=== PATIENT | female | born 1980 ===

== ENCOUNTER 2019-09-24 12:47 | Emergency (ER) | payer SELFPAY ==
--- NOTE | 2019-09-24 12:58 | Event Note ---
ED Screening Note ED Screening Note: glass in right eye 1 hour ago no vision changes states she was cleaning and a lamp broke she did not wash her eye out This initial assessment/diagnostic orders/clinical plan/treatment(s) is/are subject to change based on patients health status, clinical progression and re- assessment by fellow clinical providers in the ED. Further treatment and workup at subsequent clinical providers discretion. Patient/guardian urged not to elope from the ED as their condition may be serious if not clinically assessed and managed. Initial orders include: ACC eval
[2019-09-24 12:59] VITALS: BP 122/73
[2019-09-24] MEDS ORDERED: FLUORESCEIN 1 MG STRIP OP ONE (13:46)
[2019-09-24] MEDS ORDERED: BALANCED SALT IRRIG (BSS) OPHTH SOLN 15 ML OU ONE (14:16)
--- NOTE | 2019-09-24 14:23 | Emergency Department Report ---
Eye Injury/Foreign Body - HPI Duration: Today Eye Location: Right Tetanus Status: Up to Date Eye Symptoms: Eye Pain: No, Blurred Vision: No, Eye Redness: No, Recalls Injury: Yes Other History: 39-year-old female presents to the emergency room stating she was cleaning a glass lamp and the labs shattered and possible glass in right eye. Patient denies any redness or irritation noted. Patient did not flush I at the time. Patient denies any pain. Patient has no past medical history currently takes no medications on a daily basis and has no known drug allergies. ED Review of Systems ROS: Stated complaint: GLASS IN EYE Other details as noted in HPI Comment: All other systems reviewed and negative ED Past Medical Hx - Past Medical History Previous Medical History?: Yes - Surgical History Past Surgical History?: Yes Additional Surgical History: x 2 - Social History Smoking Status: Never Smoker Substance Use Type: None Eye Injury Exam - Exam General: Vital signs noted. No distress. Alert and acting appropriately. - Visual Acuity Right Eye Exam: Neither Injection, Neither Chemosis, Neither Abnormal Pupil, Neither EOMI, Neither Eye Foreign Body, Neither Lid Foreign Body, Neither Mucous Discharge, Neither Purulent Discharge, Neither Fluorescein Uptake, Neither Fluorescein Uptake (slit lamp), Neither Cell/Flare (slit lamp), Neither Corneal Edema, Neither Photophobia Exam: Floor seen exam of right eye is negative for any corneal abrasion or foreign object no swelling, no conjunctiva irritation or injection. ED Course Vital Signs 09/24/19 12:58 Temperature 98.3 F Pulse Rate 74 Respiratory 18 Rate Blood Pressure 122/73 O2 Sat by Pulse 100 Oximetry ED Medical Decision Making - Medical Decision Making 39-year-old female presents to the emergency room stating she was cleaning a glass lamp and the labs shattered and possible glass in right eye. Patient denies any redness or irritation noted. Patient did not flush I at the time. Patient denies any pain. Patient has no past medical history currently takes no medications on a daily basis and has no known drug allergies. Negative right eye fluorescein exam. Discussed the patient continued flushing her eye. Follow-up with an clerk of scales if she has any further concerns. Critical care attestation.: If time is entered above; I have spent that time in minutes in the direct care of this critically ill patient, excluding procedure time. ED Disposition Clinical Impression: Irritation of right eye Disposition: DC-01 TO HOME OR SELFCARE Is pt being admited?: No Does the pt Need Aspirin: No Condition: Stable Referrals: DANIEL ARROYO MD [Staff Physician] - 3-5 Days Forms: Work/School Release Form(ED), Accompanied Note
== END 2019-09-24 14:23 | disposition home or self-care (01) ==
LOC: ED 12:47
DX: H57.89 Other specified disorders of eye and adnexa (principal); H57.11 Ocular pain, right eye

== ENCOUNTER 2020-01-22 18:45 | Emergency (ER) | payer SELFPAY ==
[2020-01-22 19:19] VITALS: BP 137/71
--- NOTE | 2020-01-22 20:42 | XRay Report ---
CHEST 2 VIEWS INDICATION / CLINICAL INFORMATION: C/O headache, rapid/irregular heart rate, and elevated BP since this morning. . COMPARISON: None available. FINDINGS: SUPPORT DEVICES: None. HEART / MEDIASTINUM: The heart size and pulmonary vasculature are normal. The aorta is normal in loyd cesilia. LUNGS / PLEURA: No significant pulmonary or pleural abnormality. No pneumothorax. ADDITIONAL FINDINGS: No significant additional findings. IMPRESSION: No acute findings. Signer Name: Fercho Wild MD Signed: 01/22/2020 8:37 PM Workstation Name: [id number]
[2020-01-22] MEDS ORDERED: ACETAMINOPHEN 325 MG TAB PO ONE (22:39)
--- NOTE | 2020-01-22 22:39 | Emergency Department Report ---
HPI - General Chief Complaint: Arrhythmia/Palpitations Time Seen by Provider: 01/22/20 22:08 - HPI HPI: This is a 39-year-old female who presents to the emergency department with a complaint of palpitations and a headache. The patient says that the symptoms started this morning. The palpitations have since resolved. The patient described the headache more as pressure to the top of her head and says that has also resolved but the patient complains of a mild to moderate headache, currently 5 out of 10 in intensity. She denies any vision change, slurred speech, numbness or paresthesias, or any other neurological deficits. Denies any past medical history. Took a dose of aspirin for her symptoms. The patient was also concerned of elevated blood pressure as she took her BP on a machine at a pharmacy and says it was 130/70, which is high for her. This patient does not speak much Pashto so our java security architect екатерина was used for translation. ED Past Medical Hx - Surgical History Additional Surgical History: x 2 - Social History Smoking Status: Never Smoker Substance Use Type: None ED Review of Systems ROS: Stated complaint: HEADACHE, FAST HEART BEAT Other details as noted in HPI Comment: All other systems reviewed and negative Constitutional: denies: chills, fever Eyes: denies: eye pain, vision change ENT: denies: ear pain, throat pain Respiratory: denies: cough, shortness of breath Cardiovascular: palpitations. denies: chest pain Gastrointestinal: denies: abdominal pain, vomiting Genitourinary: denies: dysuria, discharge Musculoskeletal: denies: back pain, arthralgia Skin: denies: rash, lesions Neurological: headache. denies: weakness, numbness, paresthesias Physical Exam - Physical Exam Vital Signs: Vital Signs 01/22/20 01/22/20 19:15 19:30 Temperature 98.1 F 98.7 F Pulse Rate 86 82 Respiratory 18 18 Rate Blood Pressure 137/71 137/71 O2 Sat by Pulse 100 100 Oximetry Physical Exam: GENERAL: The patient is well-developed well-nourished. HENT: Normocephalic. Atraumatic. Patient has moist mucous membranes. EYES: Extraocular motions are intact. NECK: Supple. Trachea is midline. CHEST/LUNGS: Clear to auscultation. There is no respiratory distress noted. HEART/CARDIOVASCULAR: Regular. There is no tachycardia. ABDOMEN: Abdomen is soft, nontender. Patient has normal bowel sounds. SKIN: Skin is warm and dry. NEURO: The patient is awake, alert, and oriented. The patient is cooperative. The patient has no focal neurologic deficits. Normal speech. Cranial nerves II through XII grossly intact. No pronator drift. No dysmetria. MUSCULOSKELETAL: There is no tenderness or deformity. There is no limitation range of motion. There is no evidence of acute injury. ED Course Vital Signs 01/22/20 01/22/20 19:15 19:30 Temperature 98.1 F 98.7 F Pulse Rate 86 82 Respiratory 18 18 Rate Blood Pressure 137/71 137/71 O2 Sat by Pulse 100 100 Oximetry ED Medical Decision Making - EKG Data -: EKG Interpreted by Me EKG shows normal: sinus rhythm, axis, intervals, QRS complexes, ST-T waves Rate: normal - EKG Data When compared to previous EKG there are: previous EKG unavailable Interpretation: normal EKG - Radiology Data Radiology results: image reviewed interpreted by me: Chest x-ray does not show any acute process. There are no pleural effusions, obvious pneumonia and there is no pneumothorax. - Medical Decision Making This patient presents with the complaints of palpitations and a headache/head pressure. The palpitations have resolved upon presentation to the emergency [facility]. The patient complains of a mild to moderate headache at this time. She does not have any focal, motor or sensory deficits and her cranial nerves are intact. Given these factors, I did not feel that the patient required CT imaging of the head at this time. An EKG was done that did not show any signs of ST elevation PR, ischemia or dysrhythmia and was normal. Her vital signs were stable throughout her ED course. The blood pressure level that concerned the patient was not at a concerning level for me and is not even considered pre- hypertension. For all these reasons the patient appears safe for discharge home at this time. She has been instructed to follow-up with her primary care physician and has been given a referral for cardiology regarding the palpitations. She will return to the ER with any worsening of her symptoms or any acute distress. - Differential Diagnosis Dysrhythmia, tension headache, migraine, cluster headache Critical Care Time: No Critical care attestation.: If time is entered above; I have spent that time in minutes in the direct care of this critically ill patient, excluding procedure time. ED Disposition Clinical Impression: Palpitations Headache Qualifiers: Headache type: unspecified Headache chronicity pattern: unspecified pattern Intractability: not intractable Qualified Code(s): R51 - Headache Disposition: DC-01 TO HOME OR SELFCARE Is pt being admited?: No Condition: Stable Instructions: Palpitations (ED), Acute Headache (ED) Additional Instructions: Please follow-up with your primary care physician in the next few days. Return to the emergency department with any worsening of your symptoms or any acute distress. I have given you a referral for a local boning room worker, Dr. Sommer, to follow-up regarding your palpitations. Referrals: PRIMARY CAREMD [Primary Care Provider] - 2-3 Days PRASANNA SOMMER MD [Staff Physician] - 2-3 Days Time of Disposition: 22:58 Print Language: SWEDISH
== END 2020-01-22 23:06 | disposition home or self-care (01) ==
LOC: ED 18:45
DX: R51 Headache (principal); R00.2 Palpitations; R00.0 Tachycardia, unspecified; Z98.890 Other specified postprocedural states; Z88.0 Allergy status to penicillin
CPT/HCPCS: 71046; 93005; 93010